=== PATIENT | male | born 1950 | race Caucasian/White ===

== ENCOUNTER 2019-03-02 18:22 | Inpatient (IN) | payer MEDICARE ==
[~2019-03-02] VITALS: Ht 172.7 cm; Wt 121.0 kg
[2019-03-06 13:05] VITALS: BP 145/82
== END 2019-03-06 17:13 | disposition home or self-care (01) | DRG 242 ==
LOC: ED 19:35 → EDIP 20:50 → 5SO 22:29
PROVIDERS: ADMIT Internal Medicine; ATTEND Internal Medicine
PROC: 0JH606Z Insertion of Pacemaker, Dual Chamber into Chest Subcutaneous Tissue and Fascia, Open Approach (ICD-10-PCS; principal; 2019-03-02)
PROC: 02H63JZ Insertion of Pacemaker Lead into Right Atrium, Percutaneous Approach (ICD-10-PCS; 2019-03-02)
PROC: 02HK3JZ Insertion of Pacemaker Lead into Right Ventricle, Percutaneous Approach (ICD-10-PCS; 2019-03-02)
DX: I44.1 Atrioventricular block, second degree (principal); J96.20 Acute and chronic respiratory failure, unspecified whether with hypoxia or hypercapnia; Z68.41 Body mass index [BMI] 40.0-44.9, adult; J44.1 Chronic obstructive pulmonary disease with (acute) exacerbation; E66.9 Obesity, unspecified; Z99.81 Dependence on supplemental oxygen; E83.52 Hypercalcemia; G47.33 Obstructive sleep apnea (adult) (pediatric); I10 Essential (primary) hypertension; I45.5 Other specified heart block; Z87.891 Personal history of nicotine dependence; I49.3 Ventricular premature depolarization; E11.40 Type 2 diabetes mellitus with diabetic neuropathy, unspecified
CPT/HCPCS: 33208; 36415; 71045; 80048; 80069; 81001; 82040; 83036; 83735; 83880; 84443; 84484; 85025; 87086; 93005; 93306; 94640; 99156; 99157; 99291; C1779; C1785; C1892; G0378; J0690; J2250; J3010; J7620; J7030

== ENCOUNTER → 2019-07-15 | Outpatient (CLI) | payer MEDICARE ==
[~2019-07-15] MED LIST: ACET325T26 PO; ALBU18HF NEB; ALBU2TAB PO; AMLO10TA8 PO; ASCO10004 PO; ATEN25TA PO; CA C1TAB60 PO; CHOL2000 PO; CHRO1TAB6 PO; CHRO400T6 PO; FOLI-17 PO; LOSA100T14 PO; POTA20TA89 PO; UBIQ100C3 PO
== END | disposition home or self-care (01) ==
LOC: CFH 09:21
PROVIDERS: ATTEND Registered Nurse
DX: J84.10 Pulmonary fibrosis, unspecified (principal); J44.9 Chronic obstructive pulmonary disease, unspecified; L72.3 Sebaceous cyst; M40.204 Unspecified kyphosis, thoracic region; F12.10 Cannabis abuse, uncomplicated; Z87.891 Personal history of nicotine dependence; Z95.0 Presence of cardiac pacemaker
CPT/HCPCS: 71250